=== PATIENT | female | born 1995 | race Hispanic/Latino ===

== ENCOUNTER 2025-04-29 18:00 | Inpatient (IN) | payer OTHER ==
[2025-04-30 01:14] VITALS: BMI 35.5
[2025-04-30] MEDS ORDERED: hydrALAZINE 20 MG/ML VIAL SLOW IVP PRN (01:52)
[2025-04-30] MEDS ORDERED: Lidocaine 1% (PF) 30 ML VIAL SC PRN (01:52)
[2025-04-30] MEDS ORDERED: Ibuprofen 800 MG TAB PO PRN (01:52)
[2025-04-30] MEDS ORDERED: Ondansetron PF 4 MG/2 ML Vial IVP PRN (01:52)
[2025-04-30] MEDS ORDERED: Tranexamic Acid 1,000 MG/10 ML VIAL IVP PRN (01:52)
[2025-04-30 02:08] LABS: Hematocrit 37.0 % (34.9-44.5); Hemoglobin 12.3 g/dL (12.0-15.5); Mean Corpuscular Hemoglobin 28.6 pg (27.0-33.0); Mean Corpuscular Volume 86.0 fL (81.6-98.3); Platelet Count 261 10x3/uL (150-450); Red Blood Cell (RBC) Count 4.30 10x6/uL (3.90-5.03); White Blood Cell (WBC) Count 9.39 10x3/uL (3.5-10.5)
[2025-04-30 02:13] LABS: Glucose 87 mg/dL (70-105)
[2025-04-30] MEDS: Penicillin G Potassium 5 MILL.UNITS in Sodium Chloride 0.9% 100 ML IVPB SCH (02:28)
[2025-04-30] MEDS ORDERED: Dextrose 50% Abboject 50 ML SYRINGE SLOW IVP PRN (02:32)
[2025-04-30] MEDS ORDERED: Glucagon 1 MG/ML KIT IM PRN (02:32)
[2025-04-30 02:37] LABS: Hep B Surf Ag - L&D Non-Reactive S/CO (NonReactive)
[2025-04-30 02:38] LABS: Syphilis Antibody Index 0.06 S/CO (<1.00 Non-Reactive)
[2025-04-30] MEDS: Penicillin G 2.5 MILL.units 2.5 MILL.UNITS in Premix 1 BAG IVPB SCH (06:37)
[2025-05-01] MEDS: Oxytocin 30 units/NS 500 ML 500 ML IV SCH (05:03)
[2025-05-01] MEDS: fentaNYL/Ropivacaine Epidural 100 ML ONE (11:19)
[2025-05-01] MEDS ORDERED: diphenhydrAMINE 50 MG/ML VIAL IVP PRN ×2 (11:28→22:02)
[2025-05-01] MEDS ORDERED: Acetaminophen 325 MG TAB PO PRN (11:28)
[2025-05-01] MEDS ORDERED: fentaNYL 2 mcg/Ropivacaine 0.2% Epidural 100 ML CADD EPIDURAL SCH (11:30)
[2025-05-01] MEDS ORDERED: Communication Order-Pharmacy FS SCH ×2 (11:30→22:15)
[2025-05-01] MEDS: Ondansetron PF 4 MG/2 ML Vial IVP PRN (17:40)
[2025-05-01] MEDS ORDERED: Famotidine/PF 20 mg/2ml Vial SLOW IVP PRN (21:42)
[2025-05-01] MEDS ORDERED: Bicitra 30 ML UDCUP PO PRN (21:42)
[2025-05-01] MEDS ORDERED: Azithromycin 500 MG in Sodium Chloride 0.9% 250 ML 250 ML IVPB SCH (21:45)
[2025-05-01] MEDS ORDERED: Meperidine HCl/PF 25 MG (1 mL) VIAL SLOW IVP PRN (22:02)
[2025-05-01] MEDS ORDERED: Ondansetron PF 4 MG/2 ML Vial IVP PRN ×2 (22:02)
[2025-05-01] MEDS ORDERED: Ketorolac Tromethamine 30 MG (1 mL) VIAL IVP SCH (22:15)
[2025-05-01] MEDS: Carboprost 250 MCG/ML AMP IM SCH (22:59)
[2025-05-02] MEDS: Diphenoxylate HCl/Atropine Tablet PO PRN (00:06)
[2025-05-02] MEDS: Oxytocin 30 units/NS 500 ML 500 ML IV SCH (00:11)
[2025-05-02] MEDS: Ondansetron PF 4 MG/2 ML Vial ONE (01:40)
[2025-05-02] MEDS: Oxytocin 10 UNITS/ML VIAL ONE (01:40)
[2025-05-02] MEDS: Dexamethasone 10 MG/ML VIAL ONE (01:40)
[2025-05-02] MEDS: CEFAZOLIN 2 GM VIAL ONE (01:41)
[2025-05-02] MEDS: PHENYLEPHRINE-NS 100 MCG/ML 10 ML SYRINGE ONE (01:41)
[2025-05-02] MEDS: Azithromycin 500 MG VIAL ONE (01:41)
[2025-05-02] MEDS: Carboprost 250 MCG/ML AMP ONE (02:36)
[2025-05-02] MEDS ORDERED: hydrALAZINE 20 MG/ML VIAL SLOW IVP PRN (02:39)
[2025-05-02] MEDS ORDERED: Lanolin Ointment 7 GM TUBE TOP PRN (02:39)
[2025-05-02] MEDS ORDERED: Simethicone Chewable 80 MG TAB PO PRN (02:39)
[2025-05-02] MEDS: Hepatitis B Vaccine 10 MCG/0.5 ML SYR ONE (03:28)
[2025-05-02] MEDS: Erythromycin Base 0.5% Oint 1 GM TUBE ONE (03:28)
[2025-05-02] MEDS: Diphenoxylate HCl/Atropine Tablet PO SCH (03:28)
[2025-05-02] MEDS: Ketorolac Tromethamine 30 MG (1 mL) VIAL IVP PRN (03:31)
[2025-05-02 05:39] LABS: Hematocrit 35.6 % (34.9-44.5); Hemoglobin 12.0 g/dL (12.0-15.5); Mean Corpuscular Hemoglobin 29.4 pg (27.0-33.0); Mean Corpuscular Volume 87.3 fL (81.6-98.3); Platelet Count 224 10x3/uL (150-450); Red Blood Cell (RBC) Count 4.08 10x6/uL (3.90-5.03); White Blood Cell (WBC) Count 13.49 10x3/uL (3.5-10.5)
[2025-05-02] MEDS: Boostrix 0.5 ML (Tdap) VIAL (>/=7 yrs of age) IM ONE (09:17)
[2025-05-02] MEDS: Ferrous Sulfate 325 MG TAB PO SCH (09:17)
[2025-05-02] MEDS ORDERED: HYDROcodone/Acetaminophen 5/325 mg Tablet PO PRN (11:30)
[2025-05-02] MEDS: HYDROcodone/Acetaminophen 5/325 mg Tablet PO PRN (19:09)
[2025-05-03] MEDS: Ibuprofen 800 MG TAB PO SCH (05:28)
[2025-05-03 11:20] VITALS: BP 112/70; TEMP 98.4
== END 2025-05-03 15:45 | disposition home or self-care (01) | DRG 788 ==
LOC: CSHLD 04-30 00:49 → UNDOADMIN 04-30 00:49 → CSHLD 05-01 22:33 → CSHPP 05-02 02:42
PROVIDERS: ADMIT Obstetrics & Gynecology; ATTEND Obstetrics & Gynecology
PROC: 0U7C7ZZ Dilation of Cervix, Via Natural or Artificial Opening (ICD-10-PCS; principal; 2025-04-30)
PROC: 3E03329 Introduction of Other Anti-infective into Peripheral Vein, Percutaneous Approach (ICD-10-PCS; 2025-04-30)
PROC: 10D00Z1 Extraction of Products of Conception, Low, Open Approach (ICD-10-PCS; 2025-05-01)
DX: O24.424 Gestational diabetes mellitus in childbirth, insulin controlled (principal); Z3A.38 38 weeks gestation of pregnancy; Z37.0 Single live birth; O36.5930 Maternal care for other known or suspected poor fetal growth, third trimester, not applicable or unspecified; O16.4 Unspecified maternal hypertension, complicating childbirth; O99.284 Endocrine, nutritional and metabolic diseases complicating childbirth; O62.1 Secondary uterine inertia; E06.9 Thyroiditis, unspecified; O99.52 Diseases of the respiratory system complicating childbirth; E03.9 Hypothyroidism, unspecified; J45.909 Unspecified asthma, uncomplicated; Z79.899 Other long term (current) drug therapy; O99.824 Streptococcus B carrier state complicating childbirth; Z91.199 Patient's noncompliance with other medical treatment and regimen due to unspecified reason; O61.9 Failed induction of labor, unspecified; Z91.013 Allergy to seafood; Z79.82 Long term (current) use of aspirin; Z79.4 Long term (current) use of insulin; Z79.84 Long term (current) use of oral hypoglycemic drugs; Z79.51 Long term (current) use of inhaled steroids
CPT/HCPCS: 36415; 36416; 51702; 59200; 85027; 86780; 86850; 86900; 86901; 87340; J1100; J1885; J2274; J2310; J2405; J2540; J2550; J2590; J3010; J3490; J7120